=== PATIENT | female | born 1945 | race Caucasian/White ===

== ENCOUNTER → 2016-06-19 | Outpatient (CLI) | payer MEDICARE, OTHER | END | disposition home or self-care (01) | LOC: GMAM 10:28 | PROVIDERS: ATTEND Family Medicine | DX: R19.7 Diarrhea, unspecified (principal) ==

== ENCOUNTER → 2016-06-27 | Outpatient (CLI) | payer MEDICARE, OTHER ==
--- NOTE | 2016-06-27 14:16 | US ---
History: Right upper quadrant pain. Right upper quadrant ultrasound: Directed right upper quadrant sonography is performed. The liver appears to be of normal size, shape and echogenicity. 14 mm cyst is questioned in the left liver lobe. No intrahepatic ductal dilatation. The gallbladder appears unremarkable. No stones, wall thickening or surrounding edema is confirmed. The common duct is measured at approximately 4 mm. The right kidney is not demonstrated on this study. Visualized pancreas, aorta and IVC are within normal limits. IMPRESSION: 14 mm simple cyst left liver lobe, otherwise unremarkable right upper quadrant ultrasound. Electronically signed by: Adelina Borrero MD 06/27/2016 2:16 PM CDT
== END ==
LOC: US 08:44
PROVIDERS: ATTEND Family Medicine
DX: R10.11 Right upper quadrant pain (principal); K76.89 Other specified diseases of liver

== ENCOUNTER → 2016-07-02 | Outpatient (CLI) | payer MEDICARE, OTHER | END | disposition home or self-care (01) | LOC: GMAM 11:31 | PROVIDERS: ATTEND Family Medicine | DX: R31.21 Asymptomatic microscopic hematuria (principal); R10.13 Epigastric pain ==

== ENCOUNTER → 2016-07-03 | Outpatient (CLI) | payer MEDICARE, OTHER ==
--- NOTE | 2016-07-04 08:27 | CT ---
EXAM DESCRIPTION: Abdomen/Pelvis w/wo Contrast CLINICAL HISTORY: 71 years,Female,EPIGASTRIC TENDERNESS WITH MICROSCOPIC HEMATURIA COMPARISON: July 03, 2011 TECHNIQUE: Multiple axial tomographic images were obtained of the abdomen and pelvis with and without IV contrast without oral contrast. Then reconstructed in sagittal and coronal planes. This exam was performed using radiation doses that are As Low As Reasonably Achievable (ALARA). FINDINGS: The kidneys are unremarkable The adrenal glands are unremarkable. The spleen is unremarkable. The liver small simple cysts in the left lobe measuring 1.4 cm. The pancreas is unremarkable. The gallbladder is unremarkable. The included bowel is few diverticuli descending and sigmoid colon but no acute findings. The appendix is not seen present be surgically absent or atrophic. There is no free air, free fluid, masses, or significant adenopathy. Right buttocks and draped in a well-defined 1.7 cm dense mass which is stable most likely a prior injection granuloma. Moderate to severe loss discopathy lumbar spine. IMPRESSION: No acute findings. There is a few diverticula uncomplicated in the sigmoid colon and a small simple cysts in the left lobe liver. Stable. Electronically signed by: Giovani Wise MD 07/04/2016 8:23 AM CDT
== END | disposition home or self-care (01) ==
LOC: CT 08:47
PROVIDERS: ATTEND Family Medicine
DX: R10.11 Right upper quadrant pain (principal); R31.29 Other microscopic hematuria

== ENCOUNTER → 2017-05-27 | Outpatient (CLI) | payer MEDICARE, OTHER ==
--- NOTE | 2017-05-28 09:49 | MRI ---
EXAM DESCRIPTION: Cervical Spine w/wo Contrast: MRI. CLINICAL HISTORY: RADICULOPATHY COMPARISON: None. TECHNIQUE: Multiplanar MRI, multiple sequences, non-contrast High-field. FINDINGS: C3-4: Moderate disc space loss with anterior bulging and endplate ridging. Schmorl's node inferior C3 endplate. Posterior disc osteophyte complex bulge abutting the cord and the exiting right C4 nerve. This tissue is enhancing. Right uncinate spur and facet arthrosis with right neural foraminal stenosis. Minimal narrowing left neural foramen. Normal left facet. Normal cortical enhancement. C4-5: Marked disc space loss. Anterior disc bulging and endplate ridging. Schmorl's nodes in the endplates. Posterior broad-based disc osteophyte complex bulge with midline protrusion impressing on the cord. This tissue is enhancing. Mild canal stenosis. Bilateral moderate foraminal narrowing more right than left. Bilateral facets are negative. C5-6: Anterior Modic type II endplate reactive changes with bulging disc and anterior endplate ridging. Posterior broad-based disc osteophyte complex bulge impressing on the cord more to the left of midline. This tissue is enhancing. Mild to moderate canal stenosis. Bilateral neural foraminal narrowing. Facets are unremarkable. C6-7: Moderate disc space loss, disc desiccation, with anterior Modic type II endplate reactive changes and anterior disc bulge. Posterior midline protrusion of disc osteophyte complex impressing on the cord with mild central canal stenosis. No enhancement. Mild to moderate bilateral neural foraminal narrowing. Bilateral facets are normal. C7-T1: Trace anterolisthesis. Disc is unremarkable with no bulging. Minimal facet arthrosis bilaterally. Canal and neural foramina are patent. T1-2: Disc and disc space unremarkable with no disc bulging. Bilateral facet arthrosis with mild neural foraminal narrowing. Canal is patent. Normal signal in the C2-3 disc with no bulging. Disc spaces preserved. Canal and neural foramina are patent. Facets are unremarkable. No cord compression or cord edema. Spine is normally lordotic. Atlantoaxial joint is minimally hypertrophied. Base of the cerebellar tonsils is at the level of the the foramen magnum. Paravertebral soft tissues shows 10 x 9 mm nodule in the right lobe of the thyroid gland with enhancement.. No scoliosis. Vertebral bodies are not compressed at any level. Normal marrow signal in the remaining vertebral bodies and the posterior elements. IMPRESSION: 1. 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 Disc bulging or protrusion with significant neural foraminal and canal narrowing. 2. Right posterior disc osteophyte complex at C3-4 abutting the cord and the exiting right C4 nerve. Right neural foraminal stenosis. Correlate for right C4 radiculopathy. 3. Posterior broad-based disc osteophyte complex bulge abutting the cord at C4-5 with mild canal stenosis. Minimal enhancement. 4. Anterior moderate spondylosis at C5-6. Posterior enhancing disc osteophyte complex bulge impressing on the cord with mild to moderate canal stenosis. No cord edema. 5. Posterior midline protrusion of C6-7 disc osteophyte complex with mild central canal stenosis. Electronically signed by: Rory Vo MD 05/28/2017 9:47 AM CDT
== END ==
LOC: MRI 09:00
PROVIDERS: ATTEND Family Medicine
DX: M50.30 Other cervical disc degeneration, unspecified cervical region (principal); M47.892 Other spondylosis, cervical region; M50.21 Other cervical disc displacement, high cervical region; M50.222 Other cervical disc displacement at C5-C6 level; M50.223 Other cervical disc displacement at C6-C7 level; M54.6 Pain in thoracic spine

== ENCOUNTER → 2017-09-10 | Outpatient (CLI) | payer MEDICARE, OTHER | LOC: GMAM 12:07 | PROVIDERS: ATTEND Family Medicine | DX: D34 Benign neoplasm of thyroid gland (principal) ==

== ENCOUNTER → 2018-04-17 | Outpatient (CLI) | payer MEDICARE, OTHER | LOC: GMAM 11:40 | PROVIDERS: ATTEND Family Medicine | DX: E83.52 Hypercalcemia (principal) ==

== ENCOUNTER → 2018-07-03 | Outpatient (CLI) | payer MEDICARE, OTHER | LOC: LAB.O 07:49 | PROVIDERS: ATTEND Internal Medicine Endocrinology, Diabetes & Metabolism | DX: E21.3 Hyperparathyroidism, unspecified (principal); I10 Essential (primary) hypertension; M85.80 Other specified disorders of bone density and structure, unspecified site; R53.1 Weakness ==

== ENCOUNTER → 2018-11-23 | Outpatient (CLI) | payer MEDICARE, OTHER | LOC: GMAM 11:44 | PROVIDERS: ATTEND Family Medicine | DX: E21.3 Hyperparathyroidism, unspecified (principal); I10 Essential (primary) hypertension ==

== ENCOUNTER → 2019-06-14 | Outpatient (CLI) | payer MEDICARE, OTHER | LOC: GMAM 13:56 | PROVIDERS: ATTEND Family Medicine | DX: M25.50 Pain in unspecified joint (principal); I10 Essential (primary) hypertension; R06.02 Shortness of breath ==

== ENCOUNTER → 2019-06-22 | Outpatient (CLI) | payer MEDICARE, OTHER ==
--- NOTE | 2019-06-23 08:38 | MRI ---
EXAM DESCRIPTION: Brain w/o Contrast: MRI. CLINICAL HISTORY: DIZZINESS AND GIDDINESS COMPARISON: None. TECHNIQUE: Multiplanar, high-field MRI unit, multiple diffusion sequences, multiple conventional sequences without contrast. FINDINGS: Small foci of hyperintense FLAIR and T2-weighted signal in the subcortical white matter frontal parietal junction at the level of the ventricles and more superiorly bilaterally. Also in the bilateral luis radiata above the basal ganglia.. No hemorrhage, no cerebral edema, no midline shift.. Normal signal in the bilateral basal ganglia. No hemorrhage, no cerebral edema, no mass-effect normal signal in the brainstem and cerebellar hemispheres. No hemorrhage, no cerebral edema, no mass-effect. Concordance of the diffusion and non-diffusion sequences with no diffusion restriction. Cortical sulci, ventricles, and other CSF spaces, and the subdural spaces are normally configured for patients age. No effacement or displacement. No midline shift. No extra-axial hemorrhage. Normal flow signal void in the major vessels of the lower [place], and the venous sinuses. IACs are symmetric bilaterally. Scattered hyperintense T2 signal in the left mastoid air cells. No mass effect in the bilateral cerebellopontine angles. Pituitary gland occupies most of the sella. Base of the cerebellar tonsils is at the level of the foramen magnum. Minimal mucoperiosteal thickening diffusely in the paranasal sinuses.. The bony calvarium is intact. IMPRESSION: 1. Small focal white matter lesions in the bilateral subcortical white matter at the level of the ventricles and slightly more superiorly predominantly involving the bilateral frontoparietal regions. Also similar lesions in the bilateral luis radiata superior to the basal ganglia. Basal ganglia are unremarkable. No hemorrhage, no mass effect, no midline shift. 2. Normal noncontrast MRI diffusion study with no evidence of significant acute ischemia, or acute or subacute infarction. 3. Mild left mastoid chronic sinusitis and chronic bilateral paranasal sinusitis. Electronically signed by: Rory Vo MD 06/23/2019 8:36 AM CDT
== END ==
LOC: MRI 09:01
PROVIDERS: ATTEND Family Medicine
DX: R90.82 White matter disease, unspecified (principal); G93.9 Disorder of brain, unspecified; J32.9 Chronic sinusitis, unspecified; I65.23 Occlusion and stenosis of bilateral carotid arteries

== ENCOUNTER → 2019-06-23 | Outpatient (CLI) | payer MEDICARE, OTHER ==
--- NOTE | 2019-06-24 10:54 | US ---
EXAM DESCRIPTION: Carotid Duplex: ULTRASOUND. CLINICAL HISTORY: 74 years Female CAROTID STENOSIS COMPARISON: None. TECHNIQUE: Transcutaneous scanning utilizing starr-scale and Doppler modes to evaluate the bilateral carotid systems and vertebral arteries. Percentage of diameter of stenosis or no stenosis recorded will be based upon NASCET criteria. FINDINGS: Peak systolic/end diastolic (CM-Sec) CCA Right 93/21 Left 115/24. ICA Right proximal 59/18, distal 67/23. Left proximal 59/18, Distal 70/21. Vertebral Right 53/13 Left 51/12. ECA (PS Only) Right 58 left 69. ICA/CCA peak systolic ratio: Right 0.7 Left 0.6 ICA/CCA end diastolic ratio: Right 1.1 Left 0.9 Vertebral arteries: antegrade flow. Comments: Atherosclerotic calcifications bilaterally. Spectral broadening in the distal right ICA, in the entire left ICA. Proximal right ICA: 37% area and diameter stenosis. Proximal left ICA: 11% area stenosis and 21% diameter stenosis. IMPRESSION: 1. Doppler evaluation of the bilateral carotid systems and vertebral arteries shows no hemodynamically significant stenoses. 2. No significant amount of plaque in the carotid arteries bilaterally. Bilateral vertebral arteries showed antegrade-cephalad flow. Electronically signed by: Rory Vo MD 06/24/2019 10:53 AM CDT
== END ==
LOC: US 11:00
PROVIDERS: ATTEND Family Medicine
DX: I65.23 Occlusion and stenosis of bilateral carotid arteries (principal); R42 Dizziness and giddiness

== ENCOUNTER → 2019-06-24 | Outpatient (CLI) | payer MEDICARE, OTHER | LOC: ECHO 10:16 | PROVIDERS: ATTEND Family Medicine | DX: I11.9 Hypertensive heart disease without heart failure (principal) ==

== ENCOUNTER → 2019-07-13 | Outpatient (CLI) | payer MEDICARE, OTHER | LOC: LAB.O 08:06 | PROVIDERS: ATTEND Psychiatry & Neurology Neurology | DX: R51 Headache (principal); R42 Dizziness and giddiness; Z78.9 Other specified health status; Z13.0 Encounter for screening for diseases of the blood and blood-forming organs and certain disorders involving the immune mechanism ==

== ENCOUNTER → 2019-12-09 | Outpatient (CLI) | payer MEDICARE, OTHER | LOC: GMAM 17:04 | PROVIDERS: ATTEND Family Medicine | DX: E21.3 Hyperparathyroidism, unspecified (principal); I10 Essential (primary) hypertension ==

== ENCOUNTER → 2019-12-14 | Outpatient (CLI) | payer MEDICARE, OTHER | LOC: GMAM 11:50 | PROVIDERS: ATTEND Family Medicine | DX: E53.8 Deficiency of other specified B group vitamins (principal) ==

== ENCOUNTER → 2020-04-27 | Outpatient (CLI) | payer MEDICARE, OTHER ==
--- NOTE | 2020-04-28 08:37 | RAD ---
EXAM DESCRIPTION: Ankle,Right 3 Views CLINICAL HISTORY: 75 years Female, PAIN IN UNSPECIFIED ANKLE AND JOINTS OF FOOT, RIGHT COMPARISON: 04/18/2020 Findings: 3 view(s)/radiograph(s) Increased distraction of the curvilinear ossific density adjacent the medial malleolus. The talar dome is unremarkable. Ankle mortise is symmetric. Similar remote lateral malleolar tip injury. Right ankle soft tissue swelling. Similar degenerative changes. No new fracture. No dislocation. IMPRESSION: Increased distraction of the right medial malleolar avulsion fracture. Electronically signed by: Jaxon Brush MD 04/28/2020 8:36 AM [facility]
== END ==
LOC: RAD 08:21
PROVIDERS: ATTEND Orthopaedic Surgery
DX: S82.51XD Displaced fracture of medial malleolus of right tibia, subsequent encounter for closed fracture with routine healing (principal)